=== PATIENT | female | born 1970 | race African-American/Black ===

== ENCOUNTER 2020-09-06 09:22 | Emergency (ER) | payer OTHER, SELFPAY ==
[2020-09-06 09:47] VITALS: BP 160/96; PULSE 90; RESP 16; TEMP 37.1; O2SAT 99
--- NOTE | 2020-09-06 09:55 | ED.GENADULT ---
HPI - General Adult General Chief complaint: Skin/Abscess/Foreign Body Stated complaint: rash Time Seen by Provider: 09/06/20 09:55 Source: patient Mode of arrival: ambulatory Limitations: no limitations History of Present Illness HPI narrative: 50-year-old female patient presents to the [facility] with complaints of a rash to right side of her back for the past 5 days. Patient states she noticed some pain that radiates around to her side as well as some itching. Denies any fevers, body aches or chills. Patient states has been taking Benadryl at night to help with the itching and to help her sleep. Patient has had chickenpox before denies ever having a shingles outbreak before the past. Denies any new lotions detergents or soaps. Related Data Home Medications Medication Instructions Recorded Confirmed Benicar 09/06/20 Coreg 09/06/20 furosemide 09/06/20 metformin 09/06/20 nifedipine 09/06/20 Allergies Allergy/AdvReac Type Severity Reaction Status Date / Time No Known Allergies Allergy Verified 09/06/20 09:56 Review of Systems Review of Systems: Narrative: CONSTITUTIONAL: Denies fever, chills, or sweats. EYES: Denies visual changes, redness, or discharge. ENT: Denies rhinorrhea, congestion, sore throat, or otalgia. CARDIOVASCULAR: Denies chest pain, palpitations, or edema. RESPIRATORY: Denies cough or dyspnea. GASTROINTESTINAL: Denies abdominal pain, nausea, vomiting, or diarrhea. GENITOURINARY: Denies dysuria or hematuria. SKIN: Positive rash with pain and itching to right side of the middle back x5 days. MUSCULOSKELETAL: Denies back pain, joint pain, or myalgia. NEUROLOGIC: Denies headache, numbness, or weakness. PSYCHIATRIC: Denies anxiety or depression. [facility] Past Medical History Medical History (Updated 09/06/20 @ 10:03 by TRAVIS Carrion) Hypertension Social History Social History Gender identity (if verbalized by the patient): Female Comments At the time of my signature I agree with nursing past medical history, surgical, social, and family history. There is no relevant family history pertinent to the presenting complaint. Exam Narrative: Exam Narrative: GENERAL: Well-appearing, well-nourished, and in no acute distress. HEAD: Normocephalic, atraumatic. EYES: PERRLA and EOMI. ENT: Nares clear, no rhinorrhea or epistaxis. Mucous membranes moist. NECK: Supple. No lymphadenopathy CHEST: Clear to auscultation. No respiratory distress. HEART: Regular rate and rhythm. No murmur heard. Normal peripheral pulses. ABDOMEN: Soft, nontender, nondistended, normal active bowel sounds. EXTREMITIES: Normal range of motion. No edema. SKIN: Warm, dry, patient has a clustered blisterlike rash noted to the right side of the middle back around the T6 area. There is another little clustered area that follows a dermatome to the right side of the back with more blisterlike rash on erythemic base. NEURO: No focal deficits. Alert and oriented x3. Course Vital Signs Vital signs: Vital Signs Temperature 37.1 C 09/06/20 09:47 Pulse Rate 90 09/06/20 09:47 Respiratory Rate 16 09/06/20 09:47 Blood Pressure 160/96 H 09/06/20 09:47 Pulse Oximetry 99 09/06/20 09:47 Temperature 37.1 C 09/06/20 09:47 Pulse Rate 90 09/06/20 09:47 Respiratory Rate 16 09/06/20 09:47 Blood Pressure 160/96 H 09/06/20 09:47 Pulse Oximetry 99 09/06/20 09:47 Vital signs reviewed The patient has been informed that they may have pre-hypertension or Hypertension based on a BP reading in the department. I recommend that the patient call the primary care provider listed on their discharge instructions or a physician of their choice this week to arrange follow up for further evaluation of possible pre-hypertension or Hypertension Medical Decision Making Differential Diagnosis Differential Diagnosis: Differential diagnosis: Contact dermatitis, poiso
== END 2020-09-06 10:06 | disposition home or self-care (01) ==
PROVIDERS: Emergency Provider Nurse Practitioner Family
DX: B02.9 Zoster without complications (principal); I10 Essential (primary) hypertension
CPT/HCPCS: 99203; G0463